=== PATIENT | male | born 1985 | race Caucasian/White ===

== ENCOUNTER 2023-09-08 08:05 | Outpatient (REF) | payer BC, SELFPAY ==
[2023-09-08 15:43] LABS: Calculated LDL 151 mg/dL (<100); Cholesterol 222 mg/dL (<200); HDL Cholesterol 55 mg/dL (40-60); Triglyceride 81 mg/dL (<150)
== END 2023-09-08 08:06 | disposition home or self-care (01) ==
LOC: NCHCN 08:05
PROVIDERS: PCP Nurse Practitioner Family; Visit Provider Nurse Practitioner Family
DX: Z00.00 Encounter for general adult medical examination without abnormal findings (principal); Z13.220 Encounter for screening for lipoid disorders
CPT/HCPCS: 80061